=== PATIENT | male | born 2000 | race Caucasian/White ===

== ENCOUNTER 2022-02-14 03:51 | Emergency (ER) | payer MEDICAID ==
[~2022-02-14] VITALS: Ht 172.7 cm; Wt 91.0 kg
[2022-02-14 06:51] LABS: *AMPHETAMINES SCREEN URINE NEGATIVE (NEGATIVE); *BARBITURATES SCREEN URINE NEGATIVE (NEGATIVE); *BENZODIAZEPINES SCREEN URINE NEGATIVE (NEGATIVE); *COCAINE SCREEN URINE NEGATIVE (NEGATIVE); CANNABINOID URINE SCREEN PRESUMTIVE POSITIVE (NEGATIVE); METHADONE URINE SCREEN NEGATIVE (NEGATIVE); OPIATES URINE SCREEN NEGATIVE (NEGATIVE); PHENCYCLIDINE URINE SCREEN NEGATIVE (NEGATIVE)
[2022-02-14 11:49] LABS: BASOPHILS % 0.3 % (0.0-2.0); EOSINOPHILS % 0.9 % (0.0-5.0); HEMATOCRIT. 46.2 % (42.0-52.0); HEMOGLOBIN. 15.9 g/dL (14.0-18.0); LYMPHOCYTES % 16.9 % (20.0-50.0); MEAN CORPUSCULAR HEMOGLOBIN 30.8 pg (28.0-32.0); MEAN CORPUSCULAR VOLUME 89.7 fL (80.0-94.0); MEAN PLATELET VOLUME 8.8 fl (7.4-10.4); MONOCYTES % 6.2 % (2.0-8.0); NEUTROPHILS % 75.7 % (40.0-76.0); PLATELET 329 x1000/uL (130-400); RED BLOOD CELL COUNT 5.16 mill/uL (4.7-6.1)
[2022-02-14 12:09] LABS: CHLORIDE 105 mEq/L (98-107)
[2022-02-14] MEDS ORDERED: LORAZEPAM 2MG/ML CPJ IM STA (12:33)
[2022-02-14 12:36] LABS: ETHANOL BLOOD < 10 mg/dL
[2022-02-14] MEDS ORDERED: OLANZAPINE 10 MG/VIAL IM ONE (12:45)
[2022-02-14] MEDS ORDERED: LORAZEPAM 1MG TABLET PO ONE (19:15)
[2022-02-14] MEDS ORDERED: LORAZEPAM 2MG/ML CPJ IM SCH (21:15)
[2022-02-14] MEDS ORDERED: OLANZAPINE 10 MG/VIAL IM SCH (21:30)
[2022-02-15] MEDS ORDERED: LORAZEPAM 1MG TABLET PO ONE ×2 (10:15→23:15)
[2022-02-15] MEDS ORDERED: OLANZAPINE 10MG TABLET PO SCH (12:30)
[2022-02-16 06:50] VITALS: BP 112/74
== END 2022-02-16 08:33 | disposition left against medical advice (07) ==
LOC: EDBD 03:51 → ER 03:51
DX: F20.9 Schizophrenia, unspecified (principal); F32.A Depression, unspecified; R45.851 Suicidal ideations; F12.10 Cannabis abuse, uncomplicated; F10.10 Alcohol abuse, uncomplicated; Y90.0 Blood alcohol level of less than 20 mg/100 ml; Z20.822 Contact with and (suspected) exposure to COVID-19; Z75.1 Person awaiting admission to adequate facility elsewhere
CPT/HCPCS: 36415; 80053; 80305; 80307; 80320; 80329; 85025; 96372; 99285; C9803; J2060; J3490; U0003; U0005; G0480